=== PATIENT | female | born 1995 | race African-American/Black ===

== ENCOUNTER 2017-08-26 22:06 | Day surgery (SDC) | payer OTHER ==
[2017-08-26 22:44] VITALS: BP 112/63; TEMP 98; BMI 28.3
[2017-08-26 23:12] LABS: Amnisure Test No Membranes Rupture (No Rupture)
--- NOTE | 2017-08-26 23:23 | PDOC.EVN ---
Event Note - Event Note Event Note: L&D Triage Patient of Luís Here for vaginal pressure HPI: 89 yo at 39 weeks 1 day with vag pressure. Possble slight leakage of fluid PV but no gush or persistence. No VB, few CTX. Denies issues. No COLLAZO, good FM. Review of Systems: Complete ROS done and negative as per HPI Past medical: negative Past surgical: noncontributory Allergy: None Ob history: Social: negative x 3 Physical exam: Vitals stable, afebrile NAD Ut soft, nt Cervix: no evidence ROM on exam, 2. valsalva test neg for ROM Amnisure neg Monitor: NST Cat 1. few irregular ctx Assessment: threatened labor at term Plan: 1. reassurance given 2. NST reactive 3. Keep follow up
== END 2017-08-26 23:30 | disposition home or self-care (01) ==
LOC: L&D/OP 22:06
PROVIDERS: ATTEND Obstetrics & Gynecology
DX: O47.1 False labor at or after 37 completed weeks of gestation (principal); Z3A.39 39 weeks gestation of pregnancy
CPT/HCPCS: 84112; 99283

== ENCOUNTER 2017-09-01 07:15 | Inpatient (IN) | payer OTHER ==
[2017-09-02] MEDS ORDERED: Lidocaine 1% (PF) 30 ML VIAL SC PRN (16:30)
[2017-09-02] MEDS ORDERED: Ondansetron HCl/PF 4 MG/2 ML Vial IVP PRN (16:30)
[2017-09-02] MEDS ORDERED: Carboprost 250 MCG/ML AMP IM PRN (16:30)
[2017-09-02] MEDS ORDERED: Penicillin G Potassium 5 MILL.UNITS in Sodium Chloride 0.9% 100 ML IVPB SCH (16:30)
[2017-09-02] MEDS ORDERED: HYDROcodone/Acetaminophen 5/325 mg Tablet PO PRN (16:30)
[2017-09-02] MEDS ORDERED: Promethazine HCl 25 MG/ML VIAL IM PRN (16:30)
[2017-09-02] MEDS ORDERED: LR / Pitocin 40 units/1000 ml 1,000 ML IV PRN (16:30)
[2017-09-02] MEDS ORDERED: Ibuprofen 800 MG TAB PO PRN (16:30)
[2017-09-02] MEDS ORDERED: Misoprostol 200 MCG TAB PR PRN (16:30)
[2017-09-02] MEDS ORDERED: Acetaminophen 500 MG TAB PO PRN (16:30)
[2017-09-03] MEDS: Lactated Ringer's 1,000 ML IV SCH ×2 (11:55→16:48)
[2017-09-03 12:26] VITALS: BMI 28.3
[2017-09-03 12:56] LABS: Hemoglobin 10.8 g/dL (12.0-16.0); Mean Corpuscular HGB CONC 31.5 g/dL (32.0-36.0); Mean Corpuscular Hemoglobin 25.7 pg (27.0-31.0); Mean Corpuscular Volume 81.8 fl (81.0-99.0); Mean Platelet Volume 7.8 fL (7.4-10.4); Platelet Count 220 thou/uL (130-400); RBC Distribution Width 15.1 % (11.5-14.5); Red Blood Cell (RBC) Count 4.19 mill/uL (4.20-5.40); White Blood Cell (WBC) Count 16.2 thou/uL (4.8-10.8)
[2017-09-03] MEDS: LR 500 ML/Oxytocin 10 units 500 ML IV SCH (13:20)
[2017-09-03] MEDS ORDERED: Fentanyl 4 mcg/Marc 0.1% Cadd 100 ML ONE (13:30)
[2017-09-03 13:31] LABS: HBSAg Index 0.18 S/CO (0-0.99); Hep B Surf Ag Non-Reactive S/CO (NonReactive); Syphilis Antibody Nonreactive (Nonreactive); Syphilis Antibody Index 0.05 S/CO (<1.00 Non-Reactive)
[2017-09-03] MEDS ORDERED: Eucerin (Mineral Oil/Petrolatum,White) 30 gm Jar TOP PRN (14:27)
[2017-09-03] MEDS ORDERED: Promethazine HCl 25 MG/ML VIAL IM PRN (14:27)
[2017-09-03] MEDS ORDERED: diphenhydrAMINE 50 MG/ML VIAL IVP PRN (14:27)
[2017-09-03] MEDS ORDERED: Ondansetron HCl/PF 4 MG/2 ML Vial IVP PRN (14:27)
[2017-09-03] MEDS ORDERED: Naloxone HCl 0.4 mg/ml Vial IVP PRN ×2 (14:27)
[2017-09-03] MEDS ORDERED: ePHEDrine/0.9% NaCl/PF SYRINGE 50 mg/10 ml SLOW IVP PRN (14:27)
[2017-09-03] MEDS ORDERED: Lactated Ringer's 500 ML IV PRN (14:27)
[2017-09-03] MEDS ORDERED: Acetaminophen 325 MG TAB PO PRN (14:27)
[2017-09-03] MEDS ORDERED: Communication Order-Pharmacy FS SCH (14:30)
[2017-09-03] MEDS ORDERED: Fentanyl 4mcg/Marcaine 0.1% Cassette 100 ML EPIDURAL SCH (14:30)
[2017-09-03] MEDS: Penicillin G 2.5 MILL.units 2.5 MILL.UNITS in Premix Bag 1 BAG IVPB SCH (16:43)
[2017-09-03] MEDS ORDERED: Gentamicin Sulfate 80 MG in Premix Bag 1 BAG IVPB SCH (18:30)
[2017-09-03] MEDS ORDERED: Lidocaine 1% (PF) 30 ML VIAL ONE (19:18)
--- NOTE | 2017-09-03 19:40 | PDOC.OPDEL ---
OB Operative/Delivery Note Delivery Dr/Surgeon: Luís Pre-Delivery Diagnosis: elective induction Procedure/Post Delivery Dx: spontaneous vaginal delivery Weeks gestation: 40 Anesthesia: epidural - Findings A Sex: female Weight: 6 lb - 1 min: 8 - 5 min: 9 - Additional Findings/Plan Repaired Obstetrical Laceration: periurethral (chorio and moderate meconium nuchal cord x 1 reduced.)
[2017-09-03] MEDS ORDERED: Milk Of Magnesia 30 ML UDCUP PO PRN (19:41)
[2017-09-03] MEDS ORDERED: Bisacodyl 10 MG SUPP PR PRN (19:41)
[2017-09-03] MEDS ORDERED: Preparation H Ointment 28 GM TUBE PR PRN (19:41)
[2017-09-03] MEDS ORDERED: traMADol HCl 50 MG TAB PO PRN (19:41)
[2017-09-03] MEDS ORDERED: diphenhydrAMINE 25 MG CAP PO PRN (19:41)
[2017-09-03] MEDS ORDERED: LR / Pitocin 40 units/1000 ml 1,000 ML IV SCH (19:45)
[2017-09-03 19:47] LABS: Actual Bicarbonate (HCO3a) 20.4 mEq/L (22-26); Base Excess (BEa) -4.2 mEq/L (0 (+/-) 2.5)
[2017-09-03] MEDS: Ibuprofen 800 MG TAB PO SCH (21:56)
[2017-09-03] MEDS: Docusate (Surfak) 240 MG CAP PO SCH (21:56)
[2017-09-03] MEDS ORDERED: Gentamicin 20 MG/2 ML PF (Neonates) IVPB SCH (22:00)
[2017-09-03] MEDS ORDERED: Ampicillin 2 GM in Sodium Chloride 0.9% 100 ML IVPB SCH (23:59)
[2017-09-04] MEDS: Ampicillin 2 GM, Syringe 5.2 ML in Sterile Water 14.8 ML SLOW IVP SCH ×5 (00:04→23:45)
[2017-09-04] MEDS: Lactated Ringer's 1,000 ML IV SCH ×2 (03:56→03:57)
[2017-09-04] MEDS: Penicillin G 2.5 MILL.units 2.5 MILL.UNITS in Premix Bag 1 BAG IVPB SCH (03:57)
[2017-09-04] MEDS: LR 500 ML/Oxytocin 10 units 500 ML IV SCH (03:57)
[2017-09-04] MEDS ORDERED: Gentamicin Sulfate 80 MG in Premix Bag 1 BAG IVPB SCH (04:00)
[2017-09-04] MEDS: Ibuprofen 800 MG TAB PO SCH ×3 (06:37→21:22)
[2017-09-04] MEDS: Ferrous Sulfate 325 MG TAB PO SCH ×2 (07:50→15:33)
[2017-09-04] MEDS: Docusate (Surfak) 240 MG CAP PO SCH ×2 (08:09→21:21)
--- NOTE | 2017-09-04 08:10 | PDOC.PP ---
Post Progress Note Post Day #: 1 Subjective: No complaints. Baby doing well. PO intake tolerated: yes Flatus: yes Ambulation: yes Vital Signs (12 hours) Temp Pulse Resp BP 09/04/17 06:15 97.8 F 80 18 106/51 L 09/04/17 00:08 97.7 F 92 20 09/03/17 23:00 97.7 F 92 20 106/53 L 09/03/17 21:53 98.2 F 99 20 111/55 L 09/03/17 20:54 99.1 F 111 H 22 H 117/55 L Weight Weight 150 lb - Physical Examination General: NAD Cardiovascular: no m/r/g, RRR Respiratory: clear to auscultation bilaterally, non-labored breathing Abdominal: + bowel sounds, lochia, no distention, appropriately TTP Result Diagrams: 09/03/17 12:43 Additional Labs: Post Labs Hep Bs Antigen Non-Reactive S/CO (NonReactive) 09/03/17 12:43 - Assessment/Plan PPD 0-1. . gbs positive with suspected chorio in labor. Doing well. Afebrile. d/c antibiotics in AM possible d/c 09/05
[2017-09-04] MEDS ORDERED: Adacel (T-DAP) 0.5 ML VIAL IM ONE (09:00)
[2017-09-05] MEDS: Ampicillin 2 GM, Syringe 5.2 ML in Sterile Water 14.8 ML SLOW IVP SCH ×2 (06:03→10:50)
[2017-09-05] MEDS: Ibuprofen 800 MG TAB PO SCH ×2 (06:04→13:23)
[2017-09-05 08:06] VITALS: BP 99/57; TEMP 98.4
[2017-09-05] MEDS: Ferrous Sulfate 325 MG TAB PO SCH (08:36)
[2017-09-05] MEDS: Docusate (Surfak) 240 MG CAP PO SCH (08:58)
--- NOTE | 2017-09-05 09:04 | PDOC.PP ---
Post Progress Note Post Day #: 2 PO intake tolerated: yes Flatus: yes Ambulation: yes Vital Signs (12 hours) Temp Pulse Resp BP 09/05/17 07:30 98.4 F 71 18 99/57 L 09/05/17 04:32 97.8 F 71 18 09/04/17 23:45 97.9 F 71 18 100/58 L Weight Weight 150 lb - Physical Examination General: NAD Cardiovascular: no m/r/g, RRR Respiratory: clear to auscultation bilaterally, non-labored breathing Abdominal: + bowel sounds, lochia, no distention, appropriately TTP Result Diagrams: 09/03/17 12:43 Additional Labs: Post Labs Hep Bs Antigen Non-Reactive S/CO (NonReactive) 09/03/17 12:43 - Assessment/Plan post day 2 afebrile >36 hr ready to go home d/c home f/u 6 weeks
== END 2017-09-05 15:05 | disposition home or self-care (01) | DRG 775 ==
LOC: L&D 09-03 11:11 → 3SW 09-03 20:55
PROVIDERS: ADMIT Obstetrics & Gynecology; ATTEND Obstetrics & Gynecology
PROC: 10E0XZZ Delivery of Products of Conception, External Approach (ICD-10-PCS; principal; 2017-09-03)
PROC: 3E033VJ Introduction of Other Hormone into Peripheral Vein, Percutaneous Approach (ICD-10-PCS; 2017-09-03)
PROC: 0HQ9XZZ Repair Perineum Skin, External Approach (ICD-10-PCS; 2017-09-03)
DX: O41.1230 Chorioamnionitis, third trimester, not applicable or unspecified (principal); O69.81X0 Labor and delivery complicated by cord around neck, without compression, not applicable or unspecified; O70.0 First degree perineal laceration during delivery; O99.824 Streptococcus B carrier state complicating childbirth; Z3A.40 40 weeks gestation of pregnancy; Z37.0 Single live birth
CPT/HCPCS: 51702; 82805; 85027; 86780; 87340; 99285; A4216; J0290; J1580; J2001; J2540; J7050; J7120

== ENCOUNTER 2019-12-26 14:25 | Inpatient (IN) | payer OTHER ==
[~2019-12-26 14:25] MED LIST: Bupivacaine/Epinephrine 0.25% 30 ML VIAL ONE; EPHEDRINE 25 MG/5 ML SYRINGE ONE
[2019-12-26 15:06] VITALS: BMI 30.2
[2019-12-26 15:48] LABS: Amnisure Test No Membranes Rupture (No Rupture)
[2019-12-26 15:49] LABS: Amnisure Internal Control QC ACCEPTABLE (ACCEPTABLE)
[2019-12-26] MEDS ORDERED: hydrALAZINE 20 MG/ML VIAL SLOW IVP PRN ×2 (16:18→18:54)
--- NOTE | 2019-12-26 18:33 | PRG ---
DATE OF SERVICE: 12/26/2019 PRIMARY STAFF [employer] OFFICER: Shiela Barton MD CHIEF COMPLAINT: Leakage of fluid. HISTORY OF PRESENT ILLNESS: The patient is a 24-year-old G3, P2 female with an intrauterine at 39 weeks and 2 days who reports last night around 8: 30 or 8:45 starting to have some leakage of fluid that got her panty liner wet. The patient reports within a couple of hours, she did not notice it any more but came in today after being counseled to come in for evaluation by her primary provider's office. The patient denies any current leakage of fluid. She denies any vaginal bleeding or discharge. She denies any recent illness, fever, fall, headache, chest pain, shortness of breath, nausea, vomiting, diarrhea, or constipation. She denies hip problems, knee problems, or muscle weakness. She denies any new rashes. Again, denies vaginal bleeding, leakage of fluid, or urinary urgency or frequency. PAST MEDICAL HISTORY: Negative. PAST SURGICAL HISTORY: Negative. ALLERGIES: NO KNOWN DRUG ALLERGIES. MEDICATIONS: vitamins. SOCIAL HISTORY: Denies drug, alcohol, or tobacco use. OBSTETRICAL LABORATORY DATA: Blood type is AB-positive, antibody screen is negative. Hepatitis B surface antigen is negative. HIV is negative. GC and chlamydia are negative. She is rubella immune. Diabetes screen is 70. GBS is positive. REVIEW OF SYSTEMS: Per HPI. PHYSICAL EXAMINATION: VITAL SIGNS: Blood pressure 108/63, heart rate of 107, respiratory rate 18, saturating 100% on room air, and temperature 98.4. GENERAL: She appears to be in no acute distress. She is alert and oriented, cooperative, and pleasant to interact with. HEAD: Normocephalic, atraumatic. LUNGS: Clear to auscultation bilaterally. HEART: Regular rate and rhythm. ABDOMEN: Gravid, soft, and nontender. EXTREMITIES: Nontender, nonedematous. PELVIC: Vulva is without masses, lesions, or erythema. She does have a bit of discharge along the labia minora where they meet. On speculum exam, the patient is noted to have a significant amount of discharge reminiscent of yeast infection. Cervix is visibly closed. VP3 is collected. On digital exam per nursing staff , the patient is 1, thick, and high. On Valsalva and cough, there is no evidence of leakage of fluid and no pooling. heart tracing shows a baseline in the 140s with moderate long-term variability, positive 10 x 10 accelerations, no 15 x 15 accelerations. Tocometer showing irritability but no contractions. AmniSure test is negative. ASSESSMENT AND PLAN: The patient is a 24-year-old G3, P2 female with an intrauterine at 39 weeks and 2 days. The patient has no evidence of rupture of membranes at this time. Discharges appearing yeasty in nature. We have sent VP3 off for confirmation. The heart tracing, not reactive, though reassuring. We will at this time order a biophysical profile for confirmation of status. If this returns reassuring, the patient will be discharged to home. ANTHONY 5 on us [id number] Pt admitted for iol Dr Barton assuming care Job ID: [id number] [facility]
[2019-12-26] MEDS ORDERED: Lidocaine 1% (PF) 30 ML VIAL SC PRN (18:54)
[2019-12-26] MEDS ORDERED: Ondansetron PF 4 MG/2 ML Vial IVP PRN (18:54)
[2019-12-26] MEDS ORDERED: Butorphanol Tartrate 1 MG/ML VIAL SLOW IVP PRN (18:54)
[2019-12-26] MEDS ORDERED: NS / Oxytocin 40 units/1000ml 1,000 ML IV PRN (18:54)
[2019-12-26] MEDS ORDERED: Lactated Ringer's 1,000 ML IV SCH (19:00)
[2019-12-26] MEDS ORDERED: Penicillin G Potassium 5 MILL.UNITS in Sodium Chloride 0.9% 100 ML IVPB SCH (19:00)
[2019-12-26] MEDS ORDERED: Ibuprofen 800 MG TAB PO PRN (19:02)
[2019-12-26] MEDS ORDERED: HYDROcodone/Acetaminophen 5/325 mg Tablet PO PRN (19:02)
--- NOTE | 2019-12-26 19:14 | ULT ---
BIOPHYSICAL PROFILE: History: Nonreactive stress test. Technique: Multiplanar grayscale and color doppler images were obtained in a transabdominal ult rasound. FINDINGS: There is a single live intrauterine with heart rate of 147 beats/minute. ANTHONY is 5.0 cm, whi ch is low normal. A biophysical profile was performed. The fetus scored 8/8, which is normal. IMPRESSION: Normal biophysical profile. POS: EAA
[2019-12-26] MEDS: Lactated Ringer's 1,000 ML IV SCH (20:45)
[2019-12-26 20:56] LABS: Mean Corpuscular HGB CONC 32.6 g/dL (32.0-36.0); Mean Corpuscular Hemoglobin 27.3 pg (27.0-31.0); Mean Corpuscular Volume 83.9 fL (78.0-98.0); Mean Platelet Volume 8.1 fL (7.4-10.4); Platelet Count 208 thou/uL (130-400); RBC Distribution Width 16.1 % (11.5-14.5); Red Blood Cell (RBC) Count 4.01 mill/uL (4.20-5.40)
[2019-12-26 21:34] LABS: Syphilis Antibody Nonreactive (Nonreactive); Syphilis Antibody Index 0.05 S/CO (<1.00 Non-Reactive)
[2019-12-26] MEDS: Misoprostol 100 MCG TAB VAG SCH (22:12)
[2019-12-26 22:41] LABS: HBSAg Index 0.17 S/CO (0-0.99); Hep B Surf Ag Non-Reactive S/CO (NonReactive)
[2019-12-27] MEDS: Misoprostol 100 MCG TAB VAG SCH (01:55)
[2019-12-27] MEDS: Penicillin G 2.5 MILL.units 2.5 MILL.UNITS in Premix Bag 1 BAG IVPB SCH ×6 (01:55→19:38)
[2019-12-27] MEDS: Lactated Ringer's 1,000 ML IV SCH ×2 (02:05→09:50)
[2019-12-27] MEDS ORDERED: NS w/ Oxytocin 10 units 500 ML ONE (08:21)
[2019-12-27] MEDS ORDERED: Fentanyl 4 mcg/Bup 0.1% Cadd 100 ML ONE (08:37)
[2019-12-27] MEDS ORDERED: Lactated Ringer's 500 ML IV PRN (09:41)
[2019-12-27] MEDS ORDERED: Acetaminophen 325 MG TAB PO PRN (09:41)
[2019-12-27] MEDS ORDERED: diphenhydrAMINE 50 MG/ML VIAL IVP PRN (09:41)
[2019-12-27] MEDS ORDERED: EPHEDRINE 25 MG/5 ML SYRINGE SLOW IVP PRN (09:41)
[2019-12-27] MEDS ORDERED: Naloxone HCl 0.4 mg/ml Vial IVP PRN ×2 (09:41)
[2019-12-27] MEDS ORDERED: Promethazine HCl 25 MG/ML VIAL IM PRN (09:41)
[2019-12-27] MEDS ORDERED: Ondansetron PF 4 MG/2 ML Vial IVP PRN ×2 (09:41→19:53)
[2019-12-27] MEDS ORDERED: Communication Order-Pharmacy FS PRN (09:45)
[2019-12-27] MEDS ORDERED: Fentanyl 4 mcg/Bupivacaine 0.1% Cassette 100 ML EPIDURAL SCH (09:45)
--- NOTE | 2019-12-27 14:23 | PDOC.EVN ---
Event Note - Event Note Event Note: Called by RN to assess FHT. Pt with recent IUP and FSE placed and sp epidural. Undergoing IOL for IUGR. Pt comfortable, FHT with recurrent late decelerations and moderate variability. Pt examined and /. Pt moved to all fours position with little change in FHT. Amnioinfusion ordered to bolus 200-300ml as it was only to gravity since placement. Pt then moved back to right lateral and FHT recovered w resolution of late decels, moderate variability and accels noted. Plan of care reviewed with patient as well as indication for CS if NRFHT persists. Pt and family member's agree w plan of care.
[2019-12-27] MEDS ORDERED: Lidocaine 1% (PF) 30 ML VIAL ONE (14:28)
[2019-12-27] MEDS ORDERED: NS / Oxytocin 40 units/1000ml 1,000 ML ONE (14:28)
[2019-12-27] MEDS ORDERED: Fentanyl 100 MCG/2 ML VIAL ONE (15:49)
--- NOTE | 2019-12-27 17:29 | PDOC.OPDEL ---
OB Operative/Delivery Note Delivery Dr/Surgeon: Luís Pre-Delivery Diagnosis: medically indicated induction Procedure/Post Delivery Dx: spontaneous vaginal delivery Weeks gestation: 39 Anesthesia: epidural - Findings A Sex: female - 1 min: 9 - 5 min: 9 - Additional Findings/Plan Placenta delivered: spontaneous Repaired Obstetrical Laceration: none
[2019-12-27] MEDS ORDERED: HYDROcodone/Acetaminophen 5/325 mg Tablet PO PRN ×2 (19:53)
[2019-12-27] MEDS ORDERED: Preparation H Ointment 28 GM TUBE PR PRN (19:53)
[2019-12-27] MEDS ORDERED: Milk Of Magnesia 30 ML UDCUP PO PRN (19:53)
[2019-12-27] MEDS ORDERED: diphenhydrAMINE 25 MG CAP PO PRN (19:53)
[2019-12-27] MEDS ORDERED: NS / Oxytocin 40 units/1000ml 1,000 ML IV SCH (19:53)
[2019-12-27] MEDS ORDERED: Bisacodyl 10 MG SUPP PR PRN (19:53)
[2019-12-27] MEDS ORDERED: Benzocaine-Menthol 82.5 ML CAN TOP PRN (19:53)
[2019-12-27] MEDS ORDERED: hydrALAZINE 20 MG/ML VIAL SLOW IVP PRN (19:53)
[2019-12-27] MEDS: Ibuprofen 800 MG TAB PO SCH (20:51)
[2019-12-27] MEDS: Docusate Calcium (SURFAK) 240 MG CAP PO SCH (20:51)
[2019-12-28] MEDS: Ibuprofen 800 MG TAB PO SCH ×2 (05:27→13:57)
[2019-12-28 05:35] LABS: Hemoglobin 10.1 g/dL (12.0-16.0)
--- NOTE | 2019-12-28 06:28 | PDOC.PP ---
Post Progress Note Post Day #: 1 PO intake tolerated: yes Flatus: yes Ambulation: yes Vital Signs (12 hours) Temp Pulse Resp BP Pulse Ox 12/28/19 05:25 97.9 F 77 18 110/62 12/28/19 01:00 98.3 F 71 18 105/51 L 12/27/19 22:35 97.9 F 69 18 113/53 L 12/27/19 21:35 97.9 F 87 18 120/57 L 12/27/19 20:20 98.4 F 73 18 121/65 98 Weight Weight 160 lb Result Diagrams: 12/28/19 05:26 Additional Labs: Post Labs Blood Type AB POSITIVE 12/26/19 20:40 Hep Bs Antigen Non-Reactive S/CO (NonReactive) 12/26/19 20:41 - Assessment/Plan Post day 0-1......doing well. Possible discharge today at 24 hours if baby doing well. F/u 6 weeks.
[2019-12-28] MEDS: Ferrous Sulfate 325 MG TAB PO SCH ×2 (07:10→14:06)
[2019-12-28] MEDS: Misoprostol 100 MCG TAB VAG SCH ×2 (07:11→07:12)
[2019-12-28] MEDS: Lactated Ringer's 1,000 ML IV SCH (07:12)
[2019-12-28] MEDS: Docusate Calcium (SURFAK) 240 MG CAP PO SCH (08:40)
[2019-12-28] MEDS ORDERED: Adacel (T-DAP) 0.5 ML SYRINGE IM ONE (09:00)
[2019-12-28] MEDS ORDERED: Prenatal Vitamin 1 TAB PO SCH (09:00)
[2019-12-28 17:43] VITALS: BP 116/63; TEMP 97.8
== END 2019-12-28 18:26 | disposition home or self-care (01) | DRG 807 ==
LOC: L&D/OP 14:25 → L&D 19:01 → 3SW 12-27 20:15
PROVIDERS: ADMIT Obstetrics & Gynecology; ATTEND Obstetrics & Gynecology
PROC: 10E0XZZ Delivery of Products of Conception, External Approach (ICD-10-PCS; principal; 2019-12-26)
PROC: 3E033VJ Introduction of Other Hormone into Peripheral Vein, Percutaneous Approach (ICD-10-PCS; 2019-12-26)
PROC: 10907ZC Drainage of Amniotic Fluid, Therapeutic from Products of Conception, Via Natural or Artificial Opening (ICD-10-PCS; 2019-12-26)
DX: O41.03X0 Oligohydramnios, third trimester, not applicable or unspecified (principal); Z37.0 Single live birth; O76 Abnormality in fetal heart rate and rhythm complicating labor and delivery; Z3A.39 39 weeks gestation of pregnancy
CPT/HCPCS: 36415; 51702; 76819; 84112; 85014; 85018; 85027; 86780; 86850; 86900; 86901; 87340; 87480; 87510; 87660; 99285; J2001; J2405; J2540; J2590; J3010; J3490

== ENCOUNTER 2023-05-11 18:44 | Emergency (ER) | payer BC ==
[2023-05-11] MEDS ORDERED: HYDROcodone/Acetaminophen 5/325 mg Tablet ONE (20:29)
== END 2023-05-11 22:27 | disposition home or self-care (01) ==
LOC: ERS 18:44
DX: S82.252A Displaced comminuted fracture of shaft of left tibia, initial encounter for closed fracture (principal); W16.722A Jumping or diving from boat striking bottom causing other injury, initial encounter

== ENCOUNTER 2023-05-19 10:35 | Day surgery (SDC) | payer BC, OTHER ==
[2023-05-13 13:07] VITALS: BMI 27.3
[2023-05-19] MEDS ORDERED: Midazolam HCl 2 mg/2 ml Vial ONE (11:32)
[2023-05-19] MEDS ORDERED: fentaNYL 50 mcg/mL 1 mL Vial ONE (11:32)
[2023-05-19] MEDS ORDERED: Bupivacaine PF 0.5% 30 ML VIAL ONE (11:32)
[2023-05-19] MEDS ORDERED: Dexmedetomidine 200 MCG/2 ML VIAL ONE (11:34)
[2023-05-19] MEDS ORDERED: Fentanyl 250 MCG/5 ML VIAL ONE ×2 (11:34→15:04)
[2023-05-19] MEDS ORDERED: CEFAZOLIN 2 GM VIAL ONE (12:14)
[2023-05-19] MEDS ORDERED: Sodium Chloride 0.9% 100 ML ONE (12:14)
[2023-05-19] MEDS ORDERED: Bupivacaine HCl 0.5%/Epinephrine 1:200,000/PF 30 ml Vial ONE (13:20)
[2023-05-19] MEDS ORDERED: PROPOFOL 200 MG/20 ML VIAL ONE (13:20)
[2023-05-19] MEDS ORDERED: Ondansetron PF 4 MG/2 ML Vial ONE (13:20)
[2023-05-19] MEDS ORDERED: Dexamethasone 20 MG/5 ML VIAL ONE (13:20)
[2023-05-19] MEDS ORDERED: HYDROcodone/Acetaminophen 5/325 mg Tablet ONE (17:25)
== END 2023-05-19 17:38 | disposition home or self-care (01) ==
LOC: SDC 10:35
PROVIDERS: ATTEND Orthopaedic Surgery
PROC: 0QSH04Z Reposition Left Tibia with Internal Fixation Device, Open Approach (ICD-10-PCS; principal; 2023-05-19)
DX: S82.132A Displaced fracture of medial condyle of left tibia, initial encounter for closed fracture (principal); X58.XXXA Exposure to other specified factors, initial encounter; Z79.899 Other long term (current) drug therapy
CPT/HCPCS: C1713; J1100; J2250; J2405; J2704; J3010; J3490; S0020

== ENCOUNTER 2023-06-27 23:32 | Emergency (ER) | payer BC | END 2023-06-28 00:04 | disposition home or self-care (01) | LOC: ERS 23:32 | DX: T40.715A Adverse effect of cannabis, initial encounter (principal) | CPT/HCPCS: 93005 ==

== ENCOUNTER 2023-08-24 14:27 | Emergency (ER) | payer BC ==
[2023-08-24 15:29] LABS: #Eosinphils 0.2 thou/uL (0.0-0.7); #Monocytes 0.9 thou/uL (0.11-0.59); %Basophils 0.2 % (0.0-1.0); %Eosinophils 1.4 % (0.0-10.0); %Lymphocytes 17.8 % (21.0-51.0); %Monocytes 7.2 % (0.0-10.0); %Neutrophils 73.1 % (42.0-75.0); Hematocrit 38.5 % (36.0-47.0); Hemoglobin 12.3 g/dL (12.0-16.0); Mean Corpuscular HGB CONC 31.9 g/dL (32.0-36.0); Mean Corpuscular Hemoglobin 27.2 pg (27.0-31.0); Mean Platelet Volume 9.6 fL (7.4-10.4); Platelet Count 300 10x3/uL (130-400); RBC Distribution Width 14.3 % (11.5-14.5); Red Blood Cell (RBC) Count 4.53 mill/uL (4.20-5.40); White Blood Cell (WBC) Count 12.3 10x3/uL (4.8-10.8)
[2023-08-24 16:15] LABS: ALT (SGPT) 10 U/L (8-55); AST (SGOT) 12 U/L (5-34); Albumin 4.1 g/dL (3.5-5.0); Alkaline Phosphatase 66 U/L (40-110); Anion Gap 13 mmol/L (10-20); BUN (Urea Nitrogen) 9 mg/dL (7.0-18.7); Bilirubin, Total 0.6 mg/dL (0.2-1.2); Calc. Creatinine Clearance 0 mL/min (70-130); Calcium 9.5 mg/dL (7.8-10.44); Carbon Dioxide 19 mmol/L (22-29); Chloride 104 mmol/L (98-107); Estimated GFR 100; Globulin 3.4 g/dL (2.4-3.5); Glucose 80 mg/dL (70-105); Potassium 3.7 mmol/L (3.5-5.1); Protein, Total 7.5 g/dL (6.0-8.3); Sodium 132 mmol/L (136-145)
[2023-08-25 03:01] LABS: Chlamydia by PCR, Vaginal Swab Not Detected (NotDetected); GC by PCR, Vaginal Swab Not Detected (NotDetected)
== END 2023-08-24 18:50 | disposition home or self-care (01) ==
LOC: ERS 14:27
DX: O20.0 Threatened abortion (principal); Z3A.12 12 weeks gestation of pregnancy
CPT/HCPCS: 36415; 76801; 80053; 84702; 85025; 86850; 86900; 86901; 87491; 87591